=== PATIENT | male | born 1995 | race Caucasian/White ===

== ENCOUNTER 2021-06-25 21:20 | Emergency (ER) | payer OTHER, SELFPAY ==
[2021-06-25 21:37] VITALS: BP 128/76; PULSE 81; RESP 18; TEMP 36.7; O2SAT 100
--- NOTE | 2021-06-25 22:43 | ED.BACK ---
HPI - Back Pain/Injury General Chief Complaint: Back Pain/Injury Stated Complaint: back injury Time Seen by Provider: 06/25/21 22:22 Source: patient Mode of arrival: ambulatory Limitations: no limitations History of Present Illness HPI Narrative: 26-year-old with no major medical problems here with complaints of upper back pain since yesterday. Patient states that he went to work only lifted his tool bag came home and woke up with the back pain. He states that he is unable to get rid of pain. He is applied ice. He denies any fall or injuries. No history of shortness of breath or chest pain. MD elicited complaint: back pain Onset (ago): day(s) (1) Timing: constant Severity: moderate Similar Symptoms Previously: No Quality: aching Location: thoracic spine Radiation: none Exacerbating factors: movement Associated symptoms: denies other symptoms Related Data Allergies Allergy/AdvReac Type Severity Reaction Status Date / Time No Known Allergies Allergy Verified 06/25/21 22:22 Review of Systems Review of Systems: All systems reviewed & are unremarkable except as noted in HPI and below Constitutional: Constitutional: Reports no additional constitutional complaints Eyes: Eyes: Reports no additional eye complaints ENT: Reports system reviewed and no additional complaints, except as documented Cardiovascular: Cardiovascular: Reports no additional cardiovascular complaints Respiratory: Respiratory: Reports no additional respiratory complaints Gastrointestinal: Gastrointestinal: Reports no additional gastrointestinal complaints Musculoskeletal: Musculoskeletal: Reports as per HPI Integumentary/Breasts: Skin/Breast: Reports system reviewed and no additional complaints, except as docu Neurologic: Reports system reviewed and no additional complaints, except as documented Exam Narrative: GENERAL: Well-appearing, well-nourished, and in no acute distress. HEAD: Normocephalic, atraumatic. EYES: PERRLA and EOMI. NECK: Supple. CHEST: Clear to auscultation. No respiratory distress. HEART: Regular rate and rhythm. No murmur heard. Normal peripheral pulses. ABDOMEN: Soft, nontender, nondistended, normal active bowel sounds. EXTREMITIES: Normal range of motion. No edema. Back he has pain and tenderness in the left latissimus dorsi SKIN: Warm, dry, no rash. NEURO: No focal deficits. Alert and oriented x3. PSYCH: Normal mood and affect. Course Course Emergency Course: Informed patient that psoas muscle strain advised him to take pain medication and muscle relaxers as prescribed ,he wants off work slip . Vital Signs Vital signs: Vital Signs Temperature 36.7 C 06/25/21 21:37 Pulse Rate 81 06/25/21 21:37 Respiratory Rate 18 06/25/21 21:37 Blood Pressure 128/76 06/25/21 21:37 Pulse Oximetry 100 06/25/21 21:37 Temperature 36.7 C 06/25/21 21:37 Pulse Rate 81 06/25/21 21:37 Respiratory Rate 18 06/25/21 21:37 Blood Pressure 128/76 06/25/21 21:37 Pulse Oximetry 100 06/25/21 21:37 Discharge Plan Discharge Clinical Impression: Strain of latissimus dorsi muscle Qualifiers: Encounter type: initial encounter Qualified Code(s): S29.012A - Strain of muscle and tendon of back wall of thorax, initial encounter Patient Disposition: Home, Self-Care Condition: Stable Instructions: Antibiotic Form, Back Pain (ED) Prescriptions: New hydrocodone-acetaminophen 5-325 mg tablet 1 tablet PO Q8H PRN (Reason: pain) Qty: 14 RF: 0 cyclobenzaprine 5 mg tablet 5 mg PO TID PRN (Reason: muscle spasm) Qty: 20 RF: 0 Follow-up/Referrals: PHYSICIAN NOT ON STAFF,NONSTAFF [Primary Care Provider] - Stand Alone Forms: Work/School Release IP
[2021-06-25] MEDS: HYDROcodone/acetaminophen (*CRX) 5-325 MG TABLET 1 TAB (23:23)
[2021-06-25] MEDS: CYCLOBENZAPRINE HCL 5 MG TABLET (23:23)
== END 2021-06-25 23:27 | disposition home or self-care (01) ==
LOC: ANHED 23:08
PROVIDERS: Emergency Provider Family Medicine
DX: S29.012A Strain of muscle and tendon of back wall of thorax, initial encounter (principal); X50.0XXA Overexertion from strenuous movement or load, initial encounter
CPT/HCPCS: 99283; A9270

== ENCOUNTER 2022-10-08 08:19 | Emergency (ER) | payer OTHER, SELFPAY ==
--- NOTE | ~2022-10-08 | US_ITS ---
EXAMINATION: US soft tissue pelvic DATE: 10/08/2022 10:51 INDICATION: Abscess in the left inguinal crease TECHNIQUE: Multiple grayscale and Doppler ultrasound images of the region of concern at the left ingu inal crease near the base of the scrotum were obtained. COMPARISON: None FINDINGS: There is a 5 x 5 x 5 mm hypoechoic region in the superficial subcutaneous fat at the region of concer n which appears contiguous with approximately 1 mm wide hypoechoic defect at the skin surface. Appear ance would be most consistent with small abscess or region of phlegmonous change of a sinus tract to the skin surface. There are few subcentimeter left inguinal lymph nodes which are likely reactive. IMPRESSION: 1. 5 x 5 x 5 mm abscess or region of phlegmonous change which likely draining sinus tract extending t o the skin surface. Reviewed, dictated and finalized at location [facility] [employer] IMPRESSION: 1. 5 x 5 x 5 mm abscess or region of phlegmonous change which likely draining s inus tract extending to the skin surface.
[2022-10-08 08:25] VITALS: BP 132/72; PULSE 93; RESP 16; TEMP 37; O2SAT 100
--- NOTE | 2022-10-08 09:24 | ED.SKABFB ---
HPI - Skin/Abscess/Foreign Bdy General Chief complaint: Skin/Abscess/Foreign Body Stated complaint: groin wound Time Seen by Provider: 10/08/22 09:05 Source: patient Mode of arrival: ambulatory Limitations: no limitations History of Present Illness HPI narrative: Patient is a 27-year-old male who presents to the ED with report of an abscess to his left inguinal region. Patient reports he first noticed it 2 days ago. He does shave in that region. The abscess seems to be directly in the crease of his groin, possibly extending slightly into his lower scrotum. He did pop and squeeze the abscess yesterday and noted white purulent drainage. It is still draining. He denies any fevers or chills, abdominal pain, nausea, vomiting, testicular pain or swelling. Related Data Allergies Allergy/AdvReac Type Severity Reaction Status Date / Time No Known Allergies Allergy Verified 10/08/22 08:39 Review of Systems Review of Systems: CONSTITUTIONAL: Denies fever, chills, or sweats. GASTROINTESTINAL: Denies abdominal pain, nausea, vomiting, or diarrhea. GENITOURINARY: Denies testicular pain or swelling, dysuria or hematuria. SKIN: Reports abscess to L inguinal crease with drainage. All systems reviewed & are unremarkable except as noted in HPI and below PMFSH Past Medical History Medical History (Updated 10/08/22 @ 11:19 by Zainab James PA-C) No pertinent past medical history Surgical History Surgical History (Updated 10/08/22 @ 09:34 by Zainab James PA-C) No pertinent past surgical history Social History Social History (Updated 10/08/22 @ 09:34 by Zainab James PA-C) Smoking status: Never smoker Exam Narrative: GENERAL: Well appearing, well-nourished, non-toxic, in no acute distress. HEAD: Normocephalic, atraumatic. NECK: Supple. No adenopathy, no masses. RESPIRATORY: Airway patent, respirations nonlabored. Clear to auscultation bilaterally, no rales, rhonchi, wheezing. CARDIOVASCULAR: Regular rate and rhythm without murmurs, rubs, or gallops. Radial pulses 2+ and equal bilaterally. ABDOMINAL: Soft, nontender, nondistended, no hepatosplenomegaly. Normoactive BS. GENITAL: Approx 2 x 2 centimeter area of induration in left lower inguinal/perineal crease below the level of the scrotum. Minimal area of central fluctuance with small opening, draining purulent material. No significant redness or warmth associated with area of induration. Mild tenderness to palpation. No redness or swelling extending into the scrotum, down proximal thigh, or posterior more into perineal region. MUSCULOSKELETAL: Moves all extremities. Strength/ROM intact without gross deformities. SKIN: Warm, dry, normal color. No rashes. NEURO: A&O X3. Speech clear. Cranial nerves II-XII grossly intact. Steady gait. No ataxic movements. PSYCHIATRIC: Appropriate mood and affect. Normal interaction. Course Vital Signs Vital signs: Vital Signs Temperature 98.6 F 10/08/22 08:25 Pulse Rate 93 10/08/22 08:25 Respiratory Rate 16 10/08/22 08:25 Blood Pressure 132/72 10/08/22 08:25 Pulse Oximetry 100 10/08/22 08:25 Oxygen Delivery Room Air 10/08/22 08:25 Temperature 98.6 F 10/08/22 08:25 Pulse Rate 93 10/08/22 08:25 Respiratory Rate 16 10/08/22 08:25 Blood Pressure 132/72 10/08/22 08:25 Pulse Oximetry 100 10/08/22 08:25 Oxygen Delivery Room Air 10/08/22 08:25 MDM - Skin/Abscess/Foreign Bdy MDM Narrative Medical decision making narrative: Patient presented to ED with 2-day history of abscess to left inguinal crease. Vitals stable. Patient denying systemic signs of infection. Area spontaneously draining from central opening upon my evaluation. Wound culture obtained and sent. US soft tissue pelvis obtained showing 5 x 5 x 5 mm superficial abscess with open tract to skin surface. Due to abscess being small, not invading into important structures, and already having a opening to allow for d
--- NOTE | 2022-10-08 11:17 | PC.NURSE ---
Attempted to give patient ibuprofen and he states I have that at home, I dont want it . Patient states I have been in this room for 1 hour and 10 minutes and I want my ultrasound results . I informed patient that I would let the provider know he is wanting his results.
== END 2022-10-08 11:55 | disposition home or self-care (01) ==
PROVIDERS: Emergency Provider Physician Assistant
DX: L02.214 Cutaneous abscess of groin (principal)
CPT/HCPCS: 76857; 87070; 87077; 87186; 87205; 99284